=== PATIENT | female | born 1995 | race Caucasian/White ===

== ENCOUNTER 2018-09-23 09:49 | Emergency (ER) | payer OTHER ==
[~2018-09-23] VITALS: Ht 167.6 cm; Wt 64.0 kg
[~2018-09-23 09:49] MED LIST: ALBU8HFA PO; CEPH-571 PO; PRED50TA PO
[2018-09-23 10:05] VITALS: BP 155/77
[2018-09-23] MEDS ORDERED: ketorolac trometh inj. 60 MG/2 ML VIAL IM ONE (11:10)
== END 2018-09-23 11:38 | disposition home or self-care (01) ==
LOC: ER 09:49
DX: M25.512 Pain in left shoulder (principal); M25.522 Pain in left elbow; M25.532 Pain in left wrist; J45.909 Unspecified asthma, uncomplicated; Z79.899 Other long term (current) drug therapy; W10.8XXA Fall (on) (from) other stairs and steps, initial encounter; Y93.89 Activity, other specified; Y92.89 Other specified places as the place of occurrence of the external cause; Y99.8 Other external cause status
CPT/HCPCS: 29125; 73030; 73080; 73110; 96372; 99284; J1885

== ENCOUNTER 2019-12-01 10:07 | Emergency (ER) | payer SELFPAY ==
[~2019-12-01] VITALS: Ht 165.1 cm; Wt 76.0 kg
[2019-12-01 11:41] VITALS: BP 117/62
[2019-12-01 12:15] LABS: CLARITY,URINE CLOUDY (Clear); COLOR,URINE STRAW (Yellow); GLUCOSE, URINE NEGATIVE (Neg); KETONES,URINE NEGATIVE (Neg); LEUKOCYTE ESTERASE ,URINE NEGATIVE (Neg); NITRITES, URINE NEGATIVE (Neg); OCCULT BLOOD,URINE NEGATIVE (Neg); PROTEIN,URINE NEGATIVE (Neg); UA COLLECTION TYPE NON-SPECIFIED; UROBILINOGEN,URINE 0.2 E.U/dL (0.2-1.0)
[2019-12-01] MEDS ORDERED: GUAI120L55 PO (12:15)
[2019-12-01] MEDS ORDERED: BENZ-16 PO (12:15)
[2019-12-01 12:16] LABS: URINE HCG NEGATIVE (NEG)
[2019-12-01 12:22] LABS: RBC,URINE 0-2 /HPF (0-2); WBC,URINE 0-4 /HPF (0-4)
[2019-12-01 12:23] LABS: BACTERIA,URINE 2+ /HPF (Neg); MUCUS STRANDS NONE SEEN /LPF (Neg); SQUAMOUS EPITHELIAL CELL,UR MANY /LPF (FEW)
== END 2019-12-01 13:12 | disposition home or self-care (01) ==
LOC: ER 10:08
DX: R05 Cough (principal); R09.3 Abnormal sputum; R04.0 Epistaxis; J45.909 Unspecified asthma, uncomplicated; Z79.899 Other long term (current) drug therapy; Z88.8 Allergy status to other drugs, medicaments and biological substances
CPT/HCPCS: 71046; 81001; 81025; 99284

== ENCOUNTER 2019-12-28 14:29 | Emergency (ER) | payer SELFPAY ==
[~2019-12-28] VITALS: Ht 167.6 cm; Wt 58.6 kg
[~2019-12-28 14:29] MED LIST changes: +BENZ-16 PO; +GUAI120L55 PO
[2019-12-28 14:31] VITALS: BP 123/85
[2019-12-28] MEDS ORDERED: AZIT250T PO (14:50)
[2019-12-28] MEDS ORDERED: PRED20TA PO (14:50)
[2019-12-28] MEDS ORDERED: ALBU6.7H9 INH (14:55)
== END 2019-12-28 15:02 | disposition home or self-care (01) ==
LOC: ER 14:30
DX: R05 Cough (principal); R06.02 Shortness of breath; R51 Headache; R50.9 Fever, unspecified; J45.909 Unspecified asthma, uncomplicated; Z88.8 Allergy status to other drugs, medicaments and biological substances; Z79.899 Other long term (current) drug therapy
CPT/HCPCS: 99283

== ENCOUNTER 2024-01-26 18:56 | Emergency (ER) | payer MEDICAID ==
[~2024-01-26] VITALS: Ht 167.6 cm; Wt 86.4 kg
[~2024-01-26 18:56] MED LIST changes: +ALBU6.7H14 INH; -BENZ-16 PO
[2024-01-26 19:01] VITALS: BP 134/80; PULSE 108; RESP 18; TEMP 97.6; O2SAT 98
== END 2024-01-26 20:00 | disposition home or self-care (01) ==
LOC: ER 18:57
DX: S93.401A Sprain of unspecified ligament of right ankle, initial encounter (principal); J45.909 Unspecified asthma, uncomplicated; Z88.1 Allergy status to other antibiotic agents; Z91.018 Allergy to other foods; Z79.2 Long term (current) use of antibiotics; Z79.899 Other long term (current) drug therapy; X50.1XXA Overexertion from prolonged static or awkward postures, initial encounter; Y93.89 Activity, other specified; Y92.89 Other specified places as the place of occurrence of the external cause; Y99.8 Other external cause status
CPT/HCPCS: 73610; 99284; L1930